=== PATIENT | female | born 1945 | race Caucasian/White ===

== ENCOUNTER 2019-03-05 16:24 | Inpatient (IN) ==
--- OUTSIDE RECORDS SUMMARY | 2019-03-05 16:27 | External Medical Summary | Continuity of Care Document ---
:1945 Author Name Luanne Smith, Provider Address Unavailable Unavailable , Care Team Providers Name Role Phone Unavailable Unavailable Unavailable Marlon Lofton M.D. Unavailable [email or web address] Hina LOFTON M.D. Unavailable Unavailable Unavailable Unavailable Unavailable Assessments Assessed Problems:Encounter for preventive health examination Problems Asymptomatic Postmenopausal Status (V49.81) Allergic rhinitis (477.9) (J30.9) Vitamin D deficiency (268.9) (E55.9) Osteoporosis (733.00) (M81.0) Hyperlipidemia (272.4) (E78.5) Arthritis (716.90) (M19.90) Encounter for routine gynecological examination (V72.31) (Z0 1.419) Allergies and Adverse Reactions No Known Drug Allergies (Allergy) Medications Calcium + D TABS Sarah Refills: 0 Multiple Vitamin TABS; TAKE 1 TABLET DAILYSarah Rendon Start: 10-Jan-2013 Refills: 0 Vitamin D 50 MCG (2000 UT) Oral Capsule; TAKE 1 CAPSUL E Daily Sarah Lofton Start: 10-Feb-2015 Refills: 0 Procedures History of Complete Colonoscopy Status: Completed History of Tubal Ligation Status: Comple rodrigo History of Tonsillectomy Status: Complet ed History of Oral Surgery Tooth Extraction Status: Completed History of Dilation And Curettage Status : Completed History of Exploratory Laparotomy Status : Completed History of Tonsillectomy With Adenoidectomy Status: Completed History of Tubal Ligation Status: Comple rodrigo Immunizations Tetanus-Diphtheria Toxoids Td 2-2 LF/0.5ML Intramuscul ar Suspension On: 30-Jan-2007 0:00 Zostavax 31770 UNT/0.65ML Subcutaneous Solution Reconstitute d On: 17-Aug-2011 Pneumococcal polysaccharide vaccine, 23 valent On: 3 14:20 Lot #: [id number], [employer] Influenza On: 18-Feb-2013 16:19 Lot #: [id number], [employer] Fluzone High-Dose Intramuscular Suspension On: 10-Feb-2015 14 :27 Lot #: [id number], [employer] Prevnar 13 Intramuscular Suspension On: 10-Feb-2015 14:28 Lot #: [id number], [place] Fluzone High-Dose 0.5 ML Intramuscular Suspension Pref illed Syringe On: 12-Feb-2018 Family History Unknown Family Member Family history of Osteoporosis (V17.81) Status: Active Comments: Family History Mother Family history of Uterine Cancer (V16.49) Status: Active Family history of FH Unobtainable - Patient Adopted Status: Active Social History - Smoking Status Unknown if ever smoked Plan of Treatment Planned Observations Planned Goals not documented Results No Known Results Results not documented Encounters Appointment; Hilary Koch M.D. 01-Mar-2018 13:00 Encounter Diagnosis: Problem not documented
[2019-03-05] MEDS ORDERED: NiCARDipine HCL INJ 2.5 MG/ML 10 ML AMP ONE (16:42)
[2019-03-05] MEDS ORDERED: HEPARIN (PORCINE) 1000 UNIT/ML 10 ML (CATH LAB USE ONLY) ONE ×2 (16:42→18:14)
[2019-03-05] MEDS ORDERED: NITROGLYCERIN SL 0.4 MG/TAB TAB SL PRN (16:42)
[2019-03-05] MEDS ORDERED: NITROGLYCERIN/D5W 100MCG/ML 20ML SYR ONE ×2 (16:43→17:06)
[2019-03-05] MEDS ORDERED: fentaNYL citrate 100 MCG/2 ML VIAL ONE (16:43)
[2019-03-05] MEDS ORDERED: MIDAZOLAM HCL 1 MG/ML 2ML VIAL ONE (16:43)
[2019-03-05 16:54] LABS: Basophils # (auto) 0.03 K/uL (0-0.2); Basophils % (auto) 0.3 %; Eosinophils # (auto) 0.02 K/uL (0-0.5); Eosinophils % (auto) 0.2 %; Hematocrit (blood only) 43.1 % (37-47); Hemoglobin 14.3 g/dL (12.0-16.0); Immature Granulocytes # (auto) 0.03 K/uL (0.00-0.02); Immature Granulocytes % (auto) 0.3 %; Lymphocytes # (auto) 1.79 K/uL (1.2-3.4); Lymphocytes % (auto) 17.2 %; Mean Corpuscular Hemoglobin 30.2 pg (25-34); Mean Corpuscular Hgb Conc 33.2 g/dL (32-36); Mean Corpuscular Volume 91.1 fL (80-100); Mean Platelet Volume 10.4 fL (7.4-10.4); Monocytes # (auto) 0.51 K/uL (0.11-0.59); Monocytes % (auto) 4.9 %; Neutrophils # (auto) 8.01 K/uL (1.4-6.5); Neutrophils % (auto) 77.1 %; Platelet Count 222 K/uL (130-400); RDW Coefficient of Variation 13.3 % (11.5-14.5); RDW Standard Deviation 44.4 fL (36.4-46.3); Red Blood Count 4.73 M/uL (4.2-5.4); White Blood Count 10.39 K/uL (4.8-10.8)
--- NOTE | 2019-03-05 17:02 | Pre Anesthesia Assessment ---
Date of Service March 05, 2019 Pre Sedation Assessment Vital Signs Temp Pulse Resp BP Pulse Ox 03/05/19 16:57 108 H 18 175/107 H 100 03/05/19 16:51 107 H 18 176/111 H 96 03/05/19 16:49 108 H 20 192/110 H 96 03/05/19 16:41 107 H 16 197/127 H 95 03/05/19 16:30 98.2 F Cardiovascular RRR, no murmur, no edema Respiratory normal respiratory effort, lungs clear to auscultation Pre-Sedation Airway Assessment Smoking Status: Never smoker Hx Sleep Apnea: No Hx Difficult Intubation: No Thyromental Distance: > or= 3.5 Finger Breadths Oral Cavity: + WNL Mallampati Class: III ASA: ASA4 Procedure Planning Contraindications for Sedation: none Current Medications Reviewed: Yes Notes The planned sedation has been discussed with the patient. Informed Consent was obtained. I have identified the patient, determined the appropriateness of sheela tion and have assessed the patient immediately prior to the procedure. All medicine(s) and interventions are by my order.
--- NOTE | 2019-03-05 17:06 | Cardiology Consultation ---
Date of Consultation March 05, 2019 Assessment & Plan (1) ST elevation (STEMI) myocardial infarction: Presentation consistent with acute OH and recommend proceeding with emergent cardiac catheterization and likely primary PCI. No apparent contraindications to procedure. Discussed risks, benefits, alternatives of procedure with patient and they are willing to proceed. Further recommendations pending findings of coronary angiography. History of Present Illness History of Present Illness 73-year-old woman here with acute chest pain and ECG concerning for acute OH. Patient seen emergently in the ED after heart alert activated upon arrival. No significant past cardiac history. Questionable hypertension in the past but otherwise no significant ASCVD risk factors. Other medical issues include GERD but not on any medications. Chest pain began approximately 11 AM, 5+ hours before arrival while at rest. Describes substernal pain radiating to her left arm. Pain severe for approximately 20 minutes. Following that had stuttering chest pressure. Reports one similar episode 3 weeks ago with exertion and maybe one similar episode while walking 6 months ago. EKG on arrival here showed sinus tachyca rdia with subtle ST elevations in 1, aVL and V2, occasional PVC inferior ST depressions. Received ASA en route and 1 sublingual nitroglycerin in ED. Allergies Allergy/AdvReac Type Severity Reaction Status Date / Time No Known Allergies Allergy Mild Unverified 07/31/07 08:58 Home Medications Home Medications Medication Instructions Recorded Confirmed Type Hydrochlorothiazide (Hctz *) 12.5 mg PO DAILY #15 07/31/07 Rx NONE #0 07/31/07 History Promethazine (Phenergan) 25 mg PO Q6HR PRN #15 07/31/07 Rx Patient History Medical History No significant past medical history (Acute) Social History Feels Safe at Home: Yes Smoking Status: Never smoker Review of Systems Review of Systems: Not obtained in the setting of emergency weight Physical Exam Physical Exam: General: Uncomfortable but no acute distress HEENT: Sclerae anicteric Lungs: Clear to auscultation bilaterally Cardiac: Tachycardic, regular, no murmurs Abdomen: Soft, nontender, nondistended, positive bowel sounds. Extremities: Warm, well perfused, no edema. 2+ radial pulses Skin: No rashes or lesions. Neuro: Nonfocal Psych: Alert orient x3, normal affect and mood Results & Data Vital Signs (Past 12 Hours) Vital Signs Temp Pulse Resp BP Pulse Ox 03/05/19 16:57 108 H 18 175/107 H 100 03/05/19 16:51 107 H 18 176/111 H 96 03/05/19 16:49 108 H 20 192/110 H 96 03/05/19 16:41 107 H 16 197/127 H 95 03/05/19 16:30 98.2 F PG Care Time/CCT Total # of Minutes Spent Total Time Spent with Patient: Total time spent is greater than 50% in coordination of care (as documented) at patient's floor/unit and/or counseling patient: (1) ST elevation (STEMI) myocardial infarction Involved coronary artery: unspecified coronary artery Qualified Code(s): I21.3 - ST elevation (STEMI) myocardial infarction of unspecified site
[2019-03-05 17:11] LABS: BUN Creatinine Ratio 13.9 (10-20); Calcium 9.3 mg/dl (8.5-10.1); Creatinine Clr Calc Pharmacy 56.8 ml/min; Est GFR (African American) 80.5; Est GFR (Non-African American) 69.4; Magnesium 1.9 mg/dl (1.8-2.4); Potassium 3.9 mmol/L (3.5-5.1)
[2019-03-05 17:17] LABS: Partial Thromboplastin Ratio 0.9; Partial Thromboplastin Time 24.5 Seconds (21.0-31.0); Prothrombin Time 10.1 Seconds (9.0-12.0)
[2019-03-05 17:19] LABS: Bilirubin,Total 0.4 mg/dl (0.2-1); Creatine Kinase MB 22.7 ng/ml (0.5-3.6); Troponin I 3.67 ng/ml (0-0.045)
[2019-03-05] MEDS ORDERED: ONDANSETRON INJ 2 MG/ML 2 ML VIAL ONE (17:40)
[2019-03-05] MEDS ORDERED: PRASugrel TAB 10 MG TAB PO ONE (19:05)
[2019-03-05] MEDS ORDERED: ACETAMINOPHEN 325 MG TAB PO PRN (19:32)
[2019-03-05] MEDS ORDERED: ONDANSETRON INJ 2 MG/ML 2 ML VIAL IV PRN (19:32)
--- NOTE | 2019-03-05 19:32 | Post Anesthesia Assessment ---
Date of Service March 05, 2019 Post Sedation Assessment Vital Signs Temp Pulse Resp BP Pulse Ox 03/05/19 16:57 108 H 18 175/107 H 100 03/05/19 16:51 107 H 18 176/111 H 96 03/05/19 16:49 108 H 20 192/110 H 96 03/05/19 16:41 107 H 16 197/127 H 95 03/05/19 16:30 98.2 F Recovery Score Activity: Moves 4 extremities Respiration: Deep Breath/Cough Circulation: +/-20% PreAnes Value Consciousness: Fully Awake Oxygen Saturation: O2 needed for >90% Discharge Sedation Level of Care: Fast Track Phase II Post Sedation Plan On clinical assessment, the patient appears to have tolerated the sedation without complications. Patient is recovering as anticipated. Patient will continue to be monitored by nursing and may be discharged when sedation discharge criteria are met per below protocol. Upon Completions of procedure and additional 15 minutes continue every 5 minute vital signs and the P.A.R. score; then discharge to a Phase I or Fast Track to Phase II per the following guidelines: * Discharge Patient to appropriate Phase II area if PAR is 8 or greater or return to pre- procedure baseline. The post - procedure orders will be as directed. * If PAR score is less than 8 or not return to pre-procedure baseline then patient will follow Phase I monitoring till PAR is reached for Phase II. The Phase I may be done in procedure room or may call to secure a Phase I area. * If naloxone or flumazenil are used for reversal, hold in Phase I for continued monitoring from when last reversal dose was given for a minimum of 60 minutes or longer pending the nurse and/or physician discretion of patient condition before discharge to Phase II. Please call the Sedation Physician to re-evaluate and complete post-note for discharge to Phase II area. Do NOT discharge from procedure sedation or Phase 1 until post- sedation evaluation note is complete by procedure /sedation MD Sedation Discharge Instructions to be given to the patient at discharge to home.
[2019-03-05] MEDS ORDERED: ICU PROTOCOL FOR HYPERGLYCEMIA PRN (19:38)
[2019-03-05] MEDS ORDERED: SODIUM CHLORIDE 0.9% 1000ML 1,000 ML IV SCH (19:45)
--- NOTE | 2019-03-05 19:46 | Cardiac Catheterization ---
ACC Data: Mechanic Welder Cardiac Status Clinical evaluation leading to the procedure CAD Presenation: STEMI Anginal Classification: CCS IV Heart Failure: No Cardiogenic Shock within 24 Hours: No Cardiac Arrest within 24 Hours: No Imaging Studies Past 6 Months: No Stress Studies Past 6 Months: No Diagnostic Physicians Name: Kenneth Rios MD Status: Emergency Closure Device Percutaneous Entry Location: Radial Closure Device: Radial Band Recommendations: PCI without planned CABG PCI Indication: Immediate PCI for STEMI First Noted: First EKG Lesion Segment Name: First diagonal Culprit Artery: Yes Stenosis Prior to Rx (%): 100 Chronic Total Occlusion: No IVUS: No FFR: No Pre-Procedure MEJIA Flow: 0 Previously Treated Lesion: No Lesion Complexity: High/C Lesion Length (mm): 10 Thrombus Present: Yes Bifurcation Lesion: Yes Guidewire Across Lesion: Stenosis Post-Procedure (%): 0 Post-Procedure MEJIA Flow: 3 Devices(s) Deployed: Yes Yes Lesion #2 Segment Name: mid LAD Culprit Artery: No Stenosis Prior to Rx (%): 60 Chronic Total Occlusion: No IVUS: Yes FFR: No Pre-Procedure MEJIA Flow: 3 Previously Treated Lesion: No Lesion Complexity: High/C Lesion Length (mm): 25 Thrombus Present: No Bifurcation Lesion: Yes Guidewire Across Lesion: Yes Stenosis Post-Procedure (%): 0 Post-Procedure MEJIA Flow: 3 Devices(s) Deployed: Yes Intraprocedure Events Significant Disection: No Perforation: No Cardiac Cath Procedure Full Procedure Date March 05, 2019 Pre-Procedure Diagnosis Pre-Procedure Diagnosis: STEMI AUC Score AUC Score: 9 Post-Procedure Diagnosis Post-Procedure Diagnosis: Severe CAD and Successful PCI Procedure(s) Performed Procedure(s) Performed: Coronary Angiography, Left Heart Cath, Drug Eluting Stent and IVUS It Project Lead Kenneth Rios MD Lab Rn(s) Salvatore Estimated Blood Loss Estimated Blood Loss: 10 Medication(s) Medication(s): Fentanyl, Heparin, Lidocaine 1%, Nicardipine, Nitroglycerin and Versed Medication(s): Prasugrel Summary of Findings Indication: STEMI/Heart Alert Access: 6 Fr right radial artery Catheters: JR4, EBU 3.5 guide Findings: LM -moderate caliber vessel, luminal irregularities LAD -moderate caliber vessel, diffuse proximal 50% disease, 60% mid segment disease just after takeoff of first diagonal. Large first diagonal 100% acutely occluded with faint left to left collaterals. Circumflex -moderate caliber, 20% proximal disease. Moderate caliber OM 2 without significant disease. RCA -dominant, large caliber, 40 to 50% earlymid, 20 to 30% distal, luminal irregularities in PDA. LVEDP -19 -- PCI -- Antithrombotic therapy: Heparin, Prasugrel Procedure: Left main cannulated with EBU 3.5 guide Customer Service And Sales Consultant 50 wire passed across lesion into distal first diagonal Proximal diagonal lesion predilated with 2.0 compliant balloon Dilated diagonal lesion stented with 2.5 x 15 mm Xience Jeanne stent extending back to ostium With stenting there was worsening of mid LAD stenosis LAD rewired with whisper wire Diagonal stent postdilated with 2.5 balloon Eventually able to deliver 1.25 balloon across mid LAD stenosis. Mid LAD dilated with 1.25, 2.0 and 2.5 balloons Post angioplasty dissection noted in mid LAD Drug-eluting stent placed from lateproximal across takeoff of diagonal into mid LAD (2.5 by 28 mm Xience Jeanne). Stent post-dilated with stent balloon IC vasodilators administered for spasm Post procedure MEJIA 3 flow, stents well expanded with minimal residual stenosis and no apparent cardiac complications. Arterial Closure: TR band Summary: 1. 100% acute occlusion of large first diagonal 2. Diffuse, moderate to severe, proximal to mid LAD disease 3. 40-50% earlymid RCA stenosis 4. Borderline intracardiac filling pressure 5. Successful PCI of LAD, first diagonal bifurcation with 2 drug-eluting stents (T formation, LAD2.5 x 28, diagonal2.5 x 15 Xience Jeanne). Recommendations: Admit to ICU for continued monitoring Loaded with Prasugrel 60 mg in cathead operator Continue dual-antiplatelet therapy for at least 1 year. Trend troponins until peak, Check Echo Uptitrate beta-shital/CHRISTI as BP allows High-dose statin Consult cardiac Rehab Patient with at least moderate residual proximal LAD disease. Consider additional ischemic evaluation as an outpatient. Hemodynamics Rest Ao:: 153/86/116 Final Ao: 151/81/111 LV: 159/19 Recommendations Recommendations: PCI without planned CABG Specimens Specimens: None Radiation Exposure (mGy) 3286 Contrast (mls) 205 Fluids (cc crystalloids) Fluids (cc crystalloids): 201 Drains Drains: None Anesthesia Moderate Procedural Complication(s) None Disposition ICU I attest to the content of the Intraoperative Record and any orders documented therein. Any exceptions are noted below.
--- NOTE | 2019-03-05 20:08 | Critical Care Consultation ---
Date of Consultation March 05, 2019 Assessment & Plan (1) Admitted to intensive care unit: Reason critically ill: 73yo female with STEMI s/p cardiac cath 03/05 with stentx2 placement in LAD, diagonal. NEURO -CAM ICU-NEGATIVE -PRN Tylenol for pain CARDIOVASCULAR -Pt presented with chest pain, pressure. Only known Hx of HTN -EKG 03/[address] elevations in anterolateral leads -trops, CK-MB elevated -Pt is post cardiac cath 03/05 with stent x2 placement in LAD, diagonal -Received Prasugrel 60mg during catheterization -will continue dual antiplatelet therapy, high intensity statin -will give CHRISTI and betablocker while monitoring BP -continue to trend trops -followup on Echo -followup on ordered lipid panel, hgA1c PULMONARY -pt with crackles on exam -new requirement of oxygen supplementation, currently 2L NC -can consider d/c fluids given crackles heard on exam -will continue to monitor RENAL/LYTES -Cr within normal limits -replace electrolytes as needed -continue to monitor with AM BMP -no concerns currently ENDOCRINE -HgBA1c pending -ICU protocol for hyperglycemia HEME -no concerns currently ID -no concerns currently PIVs DVT Proph: SCDs CODE STATUS: Full Dispo: ICU for monitoring Supervising Physician Co-Signing Physician Notes Dr Roman was the resident-physician during care of patient. I separately evaluated patient for hickey portions of the history and the exam. I was present during the critical portion of medical decision making, and I discussed the case with the resident. I generally agree with the findings and plan except for any additions/exceptions noted. Patient seen and examined at bedside. Patient was admitted with heart code. Patient has stent placed in LAD and diagonal. Complains of mild chest tightness. Denies any chest pain, no nausea or vomiting. No dizziness. Patient has history of gastritis. We will start her on Protonix. Continue with dual antiplatelet therapy. Will start DVT prophylaxis starting tomorrow. Right arm has venous congestion likely because of the arterial lock on the right radial artery. Patient is able to move the right fingers. Patient is saturating well. I have personally spent 35 minutes of critical care time in the direct management of this patient. This is a life/limb threatening event. This includes time spent evaluating patient, direct bedside care, chart review, placing orders, interpretation of diagnostic studies, discussion with consultants, patient, and/or family members regarding treatment decisions, as well as other required patient management activities. This time is exclusive of all separately billable procedures, and teaching time and separate from and in addition to any other critical care service time. History of Present Illness Attending Physician: Kenneth Rios MD History of Present Illness Pt is a 73yo female with STEMI s/p cardiac cath 03/05 with stentx2 placement in LAD, diagonal. States she was driving this AM when she noticed the chest pain, radiating down her arm. Presented to the ED where a heart alert was called and she was sent to cardiac cath. Currently states she has mild chest pressure post-op. Denies associated SOB or palpitations. Also denies EPPERSON, blurry vision, N/V or dizziness. Allergies Allergy/AdvReac Type Severity Reaction Status Date / Time No Known Allergies Allergy Mild Unverified 07/31/07 08:58 Patient History Medical History No significant past medical history (Acute) Social History Feels Safe at Home: Yes Smoking Status: Never smoker Review of Systems Review of Systems: All systems reviewed & are unremarkable except as noted in HPI & below Physical Exam Physical Exam: General: Alert, oriented. Looks fatigued laying in bed. Skin: No noted rashes or bruises Psych: Appropriate mood and affect Neuro: No gross deficits HEENT: NC/AT Chest: Nontender to palpation. CV: RRR, Normal s1, s2. No murmurs appreciated Resp: Breath sounds with some crackles, no increased effort of breathing. Abdomen: Soft, nontender, nondistended. No guarding. Extremities: No edema in lower extremities bilaterally. Results & Data Vital Signs (Past 12 Hours) Vital Signs Temp Pulse Resp BP Pulse Ox 03/05/19 19:45 91 H 12 159/99 H 93 03/05/19 19:20 36.8 C 90 16 140/82 92 03/05/19 16:57 108 H 18 175/107 H 100 03/05/19 16:51 107 H 18 176/111 H 96 03/05/19 16:49 108 H 20 192/110 H 96 03/05/19 16:41 107 H 16 197/127 H 95 03/05/19 16:30 36.8 C Coding Level of Care Code Critical Care 1st 30-74 mins Diagnoses Admitted to intensive care unit Z78.9 Resident Activity Tracking Resident Involvement: Resident Care Provided Care Provided: Adult Hospital Medicine
[2019-03-05] MEDS: METOPROLOL TARTRATE 25 MG TAB PO SCH (20:48)
--- NOTE | 2019-03-05 22:27 | Emergency Department Note ---
Entered by Lilli De Jesus acting as a scribe for Luis Avila M.D. History of Present Illness General Chief complaint: Chest Pain Stated complaint: CHEST PAIN, RADIATING TO LEFT SHOULDER Time Seen by Provider: 03/05/19 16:36 Source: patient History of Present Illness Provider complaint: chest pain Onset (ago): hour(s) 5 Location: chest and left Radiation: extremity (left) Quality: + other (pressure) Associated symptoms: + other (-neck pain,- back pain, -abdominal pain) Treatments prior to arrival: aspirin The patient is a 73 year old female who presents to the Emergency Room with complaints of chest pain that started at 1130 today. The patient reports she was running errands when she developed chest pain that radiates to her left side. S he states that it radiated slightly to her left arm. She mentions that when she laid down the pain slightly resolved. She states that it feels like a pressure currently. She denies any neck pain, jaw pain, or abdominal pain. The patient denies any history of hypertension or diabetes. She denies any cardiac history. She states that she is a non-smoker. The patient mentions that she took Aspirin prior to arrival. Home Medications Home Medications Medication Instructions Recorded Confirmed Type Hydrochlorothiazide (Hctz *) 12.5 mg PO DAILY #15 07/31/07 Rx NONE #0 07/31/07 History Promethazine (Phenergan) 25 mg PO Q6HR PRN #15 07/31/07 Rx Allergies Allergy/AdvReac Type Severity Reaction Status Date / Time No Known Allergies Allergy Mild Unverified 07/31/07 08:58 Past Med/Surg History Medical History No significant past medical history (Acute) Social History Feels Safe at Home: Yes Smoking Status: Never smoker Review of Systems See HPI for pertinent positives & negatives. and A total of 10 systems reviewed and were otherwise negative Physical Exam Vital Signs Vital Signs - 24 hr 03/05/19 16:30 03/05/19 16:41 03/05/19 16:49 Temperature 36.8 C Temperature Source Oral Sepsis Recent Fever Within 48 Hours No Sepsis New/Unexplained Change in Mental Status No Sepsis Action Taken by Nursing No Action Required Pulse Rate [Finger] 107 H 108 H Pulse Rhythm [Finger] Pulse Strength [Finger] Respiratory Rate 16 20 Respiratory Effort / Characteristics Non-Labored Non-Labored Respiratory Depth Normal Normal Respiratory Pattern Blood Pressure [Left Arm] 197/127 H 192/110 H Blood Pressure Mean [Left Arm] 150 137 Blood Pressure Position [Left Arm] Pulse Oximetry 95 96 Oxygen Delivery Method Room Air Room Air Oxygen Flow Rate 03/05/19 16:51 03/05/19 16:57 03/05/19 19:20 Temperature 36.8 C Temperature Source Oral Sepsis Recent Fever Within 48 Hours Sepsis New/Unexplained Change in Mental Status Sepsis Action Taken by Nursing Pulse Rate [Finger] 107 H 108 H 90 Pulse Rhythm [Finger] Regular Pulse Strength [Finger] Normal Respiratory Rate 18 18 16 Respiratory Effort / Characteristics Non-Labored Non-Labored Non-Labored Spontaneous Respiratory Depth Normal Normal Normal Respiratory Pattern Regular Blood Pressure [Left Arm] 176/111 H 175/107 H 140/82 Blood Pressure Mean [Left Arm] 132 129 101 Blood Pressure Position [Left Arm] Lying Pulse Oximetry 96 100 92 Oxygen Delivery Method Room Air Nasal Cannula Oxygen Flow Rate 2 GENERAL: Awake, alert, fatigued appearing in no distress HENT: Normocephalic, atraumatic. EYES: Normal conjunctiva. Sclera non-icteric. RESPIRATORY: Clear to auscultation. No wheezes. Normal respiratory effort. CARDIAC: Tachycardic rate. Normal rhythm. Extremities warm and well perfused. GI: Soft, non-distended. No tenderness to palpation. MUSCULOSKELETAL: Atraumatic. Chest examination reveals no tenderness. LOWER EXTREMITIES: Calves are equal size bilaterally and non-tender. No edema NEURO: Normal sensorium. No sensory or motor deficits noted. No facial droop. SKIN: Warm and dry. No rash or jaundice noted. Course 1637: The patient was evaluated in room B1, and a complete history and physical examination were performed. 1645: I reviewed the patient's case with Dr. Rios- [facility] Cardiology. He will evaluate the patient for further management. Administered Medications Sodium Chloride (Nss 1000ml) 1,000 mls @ 100 mls/hr IV .Q10H SINAN Stop: 03/06/19 00:44 Last Admin: 03/05/19 20:48 Dose: 100 mls/hr Documented by: [id number] Metoprolol Tartrate (Lopressor) 25 mg PO BID SINAN Stop: 04/04/19 20:59 Last Admin: 03/05/19 20:48 Dose: 25 mg Documented by: [id number] Discontinued Medications Fentanyl Citrate (Fentanyl Citrate) Confirm Administered Dose 100 mcg .ROUTE .STK-MED ONE Stop: 03/05/19 16:44 Last Increment: 03/05/19 19:13 Dose: 50 mcg Documented by: [id number] Heparin Sodium (Porcine) (Heparin Iv Bolus (Designer/Writer Use Only)) Confirm Administered Dose 10,000 units .ROUTE .STK-MED ONE Stop: 03/05/19 16:43 Last Admin: 03/05/19 19:12 Dose: 10,000 units Documented by: [id number] Heparin Sodium (Porcine) (Heparin Iv Bolus (Designer/Writer Use Only)) Confirm Administered Dose 10,000 units .ROUTE .STK-MED ONE Stop: 03/05/19 18:15 Last Admin: 03/05/19 19:13 Dose: 2,000 units Documented by: [id number] Heparin Sodium/Sodium Chloride (Heparin/Nss 1000 Unit/500ml Flush Bag) Confirm Administered Dose 3,000 units IV .STK-MED ONE Stop: 03/05/19 16:44 Last Admin: 03/05/19 20:43 Dose: Not Given Documented by: [id number] Midazolam HCl (Versed) Confirm Administered Dose 2 mg .ROUTE .STK-MED ONE Stop: 03/05/19 16:44 Last Admin: 03/05/19 19:13 Dose: 2 mg Documented by: [id number] Nicardipine HCl (Cardene) Confirm Administered Dose 25 mg .ROUTE .STK-MED ONE Stop: 03/05/19 16:43 Last Admin: 03/05/19 20:43 Dose: Not Given Documented by: [id number] Nitroglycerin/Dextrose (Nitroglycerin/D5w 100 Mcg/Ml 20ml Syringe) Confirm Administered Dose 2,000 mcg .ROUTE .STK-MED ONE Stop: 03/05/19 16:44 Last Admin: 03/05/19 20:43 Dose: Not Given Documented by: [id number] Nitroglycerin/Dextrose (Nitroglycerin/D5w 100 Mcg/Ml 20ml Syringe) Confirm Administered Dose 2,000 mcg .ROUTE .STK-MED ONE Stop: 03/05/19 17:07 Last Admin: 03/05/19 20:44 Dose: Not Given Documented by: [id number] Ondansetron HCl (Zofran) Confirm Administered Dose 4 mg .ROUTE .STK-MED ONE Stop: 03/05/19 17:41 Last Admin: 03/05/19 19:13 Dose: 4 mg Documented by: [id number] Prasugrel (Effient) Confirm Administered Dose 60 mg PO .STK-MED ONE Stop: 03/05/19 19:06 Last Admin: 03/05/19 19:13 Dose: 60 mg Documented by: [id number] Medical Decision Making Differential Diagnosis Differential diagnosis: Etiologies such as cardiac ischemia, aortic dissection, pulmonary embolism, pneumonia, pneumothorax, musculoskeletal, infections, pericarditis, myocarditis, esophageal rupture, gastrointestinal, as well as others were entertained. Medical Records Attestation: I reviewed the patient's medical records. Home Medications Current Medication List: was personally reviewed by me Laboratory Data Attestation: I reviewed the patient's lab results. Result diagrams: 03/05/19 16:44 03/05/19 16:44 Lab Results 03/05/19 03/05/19 03/05/19 Range/Units 16:44 16:44 16:44 WBC 10.39 (4.8-10.8) K/uL RBC 4.73 (4.2-5.4) M/uL Hgb 14.3 (12.0-16.0) g/dL Hct 43.1 (37-47) % MCV 91.1 (80-100) fL MCH 30.2 (25-34) pg MCHC 33.2 (32-36) g/dL RDW Std Deviation 44.4 (36.4-46.3) fL RDW Coeff of Migel 13.3 (11.5-14.5) % Plt Count 222 (130-400) K/uL MPV 10.4 (7.4-10.4) fL Immature Gran % (Auto) 0.3 % Neut % (Auto) 77.1 % Lymph % (Auto) 17.2 % Calloway % (Auto) 4.9 % Eos % (Auto) 0.2 % Baso % (Auto) 0.3 % Immature Gran # (Auto) 0.03 H (0.00-0.02) K/uL Neut # (Auto) 8.01 H (1.4-6.5) K/uL Lymph # (Auto) 1.79 (1.2-3.4) K/uL Calloway # (Auto) 0.51 (0.11-0.59) K/uL Eos # (Auto) 0.02 (0-0.5) K/uL Baso # (Auto) 0.03 (0-0.2) K/uL PT 10.1 (9.0-12.0) Seconds INR 1.0 (0.9-1.1) APTT 24.5 (21.0-31.0) Seconds PTT Ratio 0.9 Sodium 137 (136-145) mmol/L Potassium 3.9 (3.5-5.1) mmol/L Chloride 103 (98-107) mmol/L Carbon Dioxide 27 (21-32) mmol/L Anion Gap 7.0 (3-11) BUN 12 (7-18) mg/dl Creatinine 0.84 (0.6-1.2) mg/dl Est Cr Clr Drug Dosing 56.8 ml/min Est GFR ( Amer) 80.5 Est GFR (Non-Af Amer) 69.4 BUN/Creatinine Ratio 13.9 (10-20) Glucose 116 H (70-99) mg/dl Calcium 9.3 (8.5-10.1) mg/dl Magnesium 1.9 (1.8-2.4) mg/dl Total Bilirubin 0.4 (0.2-1) mg/dl AST 27 (15-37) U/L ALT 22 (12-78) U/L Alkaline Phosphatase 79 (45-117) U/L Total Creatine Kinase 197 H (26-192) U/L CK-MB (CK-2) 22.7 H (0.5-3.6) ng/ml CK/CKMB % Calc 11.5 H (0-3.0) POC Troponin I (0-0.045) ng/ml Troponin I 3.670 H* (0-0.045) ng/ml Total Protein 8.0 (6.4-8.2) gm/dl Albumin 4.0 (3.4-5.0) gm/dl Globulin 4.0 (2.5-4.0) gm/dl Albumin/Globulin Ratio 1.0 (0.9-2) Lipase 85 (73-393) U/L 03/05/19 Range/Units 16:48 WBC (4.8-10.8) K/uL RBC (4.2-5.4) M/uL Hgb (12.0-16.0) g/dL Hct (37-47) % MCV (80-100) fL MCH (25-34) pg MCHC (32-36) g/dL RDW Std Deviation (36.4-46.3) fL RDW Coeff of Migel (11.5-14.5) % Plt Count (130-400) K/uL MPV (7.4-10.4) fL Immature Gran % (Auto) % Neut % (Auto) % Lymph % (Auto) % Calloway % (Auto) % Eos % (Auto) % Baso % (Auto) % Immature Gran # (Auto) (0.00-0.02) K/uL Neut # (Auto) (1.4-6.5) K/uL Lymph # (Auto) (1.2-3.4) K/uL Calloway # (Auto) (0.11-0.59) K/uL Eos # (Auto) (0-0.5) K/uL Baso # (Auto) (0-0.2) K/uL PT (9.0-12.0) Seconds INR (0.9-1.1) APTT (21.0-31.0) Seconds PTT Ratio Sodium (136-145) mmol/L Potassium (3.5-5.1) mmol/L Chloride (98-107) mmol/L Carbon Dioxide (21-32) mmol/L Anion Gap (3-11) BUN (7-18) mg/dl Creatinine (0.6-1.2) mg/dl Est Cr Clr Drug Dosing ml/min Est GFR ( Amer) Est GFR (Non-Af Amer) BUN/Creatinine Ratio (10-20) Glucose (70-99) mg/dl Calcium (8.5-10.1) mg/dl Magnesium (1.8-2.4) mg/dl Total Bilirubin (0.2-1) mg/dl AST (15-37) U/L ALT (12-78) U/L Alkaline Phosphatase (45-117) U/L Total Creatine Kinase (26-192) U/L CK-MB (CK-2) (0.5-3.6) ng/ml CK/CKMB % Calc (0-3.0) POC Troponin I 2.84 H (0-0.045) ng/ml Troponin I (0-0.045) ng/ml Total Protein (6.4-8.2) gm/dl Albumin (3.4-5.0) gm/dl Globulin (2.5-4.0) gm/dl Albumin/Globulin Ratio (0.9-2) Lipase (73-393) U/L ECG Data Attestation: I personally reviewed and interpreted this ECG as follows: Indication: chest pain Rate (beats per minute): 103 Rhythm: sinus tachycardia ECG [place]: Normal ECG ST segments: ST depression ECG Findings: PVCs and Other (normal interval) Blood Pressure Blood Pressure Findings: Elevated blood pressure Blood Pressure Disposition: further management by hospitalist VALENTE Goldsmith Patient is a 73-year-old female otherwise healthy presenting here today complaining of onset around 11 AM when she was driving of some central chest pain rating to her left shoulder. Pain was maximal for about 20 minutes and improved when she laid down at home. Pressure has persisted. No shortness of breath or nausea. No trauma reported. States over the past month or 2 she has had some episodes when walking a little bit of similar pressure but no severe pain like this before. Took aspirin full dose prior to arrival. No history of cardiac disease, diabetes, or tobacco usage. Triage EKG concerning for ST segment elevation [place] anteriorly. Heart alert was called. Given nitroglycerin with resolution of her pressure symptoms. Patient is significantly hypertensive. Evaluated by Dr. Rios with cardiology who plans for cardiac catheterization. Patient was taken to the cardiac catheterization lab for further care. Impression & Plan ST elevation (STEMI) myocardial infarction Critical Care Time Critical Care Time: Yes Total Critical Care Time: 30 I have personally spent 30 minutes of critical care time in the direct management of this patient. This includes bedside care, interpretation of diagnostic studies, and testing, discussion with consultants, patient, and family members, and other required patient management activities. This 30 minutes is in excess of all separately billable procedures. Discharge Plan Visit Data *Final* Discharge Date/Time: 03/05/19 16:58 Chief Complaint: Chest Pain Stated Complaint: CHEST PAIN, RADIATING TO LEFT SHOULDER ED Provider: Luis Avila Discharge Problem: ST elevation (STEMI) myocardial infarction Patient Disposition: Still a Patient Discharge Instructions Interventions: ED Discharge Assessment Last Done: 03/05/19 16:58 Discharge Problem: ST elevation (STEMI) myocardial infarction Qualifiers: Involved coronary artery: unspecified coronary artery Qualified Code(s): I21.3 - ST elevation (STEMI) myocardial infarction of unspecified site The scribe's documentation has been prepared under my direction and personally reviewed by me in its entirety. I confirm that the note above accurately reflec ts all work, treatment, procedures, and medical decision making performed by me.
[2019-03-06 05:04] LABS: Basophils # (auto) 0.01 K/uL (0-0.2); Basophils % (auto) 0.1 %; Hematocrit (blood only) 35.9 % (37-47); Hemoglobin 12.3 g/dL (12.0-16.0); Immature Granulocytes # (auto) 0.02 K/uL (0.00-0.02); Immature Granulocytes % (auto) 0.2 %; Lymphocytes # (auto) 1.94 K/uL (1.2-3.4); Lymphocytes % (auto) 16.3 %; Mean Corpuscular Hgb Conc 34.3 g/dL (32-36); Mean Corpuscular Volume 87.6 fL (80-100); Monocytes # (auto) 0.52 K/uL (0.11-0.59); Monocytes % (auto) 4.4 %; Neutrophils # (auto) 9.42 K/uL (1.4-6.5); Platelet Count 211 K/uL (130-400); RDW Coefficient of Variation 13.2 % (11.5-14.5); RDW Standard Deviation 42.9 fL (36.4-46.3); White Blood Count 11.91 K/uL (4.8-10.8)
[2019-03-06 05:25] LABS: Chol HDL Ratio 4; Cholesterol 264 mg/dl (0-200); HDL Cholesterol 67 mg/dl; LDL Cholesterol Calculated 146 mg/dl; Triglycerides 256 mg/dl (0-150); VLDL Cholesterol 51 mg/dl
[2019-03-06 06:22] LABS: Estimated Average Glucose 117 mg/dl; Hemoglobin A1C 5.7 % (4.5-5.6)
--- NOTE | 2019-03-06 08:22 | Critical Care Progress Note ---
Date of Service March 06, 2019 Assessment & Plan (1) Admitted to intensive care unit: Reason critically ill: 73yo female with STEMI s/p cardiac cath 03/05 with stentx2 placement in LAD, diagonal. Post-procedure DAY 1. Stable for downgrade. NEURO -[facility] ICU-NEGATIVE -PRN Tylenol for pain CARDIOVASCULAR -Pt presented with chest pain, pressure. Only known Hx of HTN -EKG 03/[address] elevations in anterolateral leads -trops, CK-MB elevated on admission. -Pt is post cardiac cath 03/05 with stent x2 placement in LAD, diagonal -Received Prasugrel 60mg during catheterization -continue dual antiplatelet therapy, high intensity statin -continue CHRISTI and betablocker(uptitrated today) while monitoring BP -troponins are currently uptrending and peaking. Continue to trend -Echo pending -lipid panel with elevated triglycerides and total cholesterol- continue high intensity statin -hgA1c of 5.7. -close PCP/cardiology followup strongly recommended. PULMONARY -pt with resolution of need for oxygen supplementation -incentive spirometry ordered -will continue to monitor GI -currently on a heart healthy diet -PO protonix BID RENAL/LYTES -Cr within normal limits -replace electrolytes as needed -continue to monitor with AM BMP -no concerns currently ENDOCRINE -HgBA1c of 5.7 -ICU protocol for hyperglycemia HEME -Pt with hematoma on right hand -Hgb within normal limits with drop from 14.3 to 12.3 this AM -will continue to monitor. ID -no concerns currently PIVs DVT Proph: SCDs CODE STATUS: Full Dispo: Stable for downgrade to the floor Supervising Physician Co-Signing Physician Notes Dr Roman was the resident-physician during care of patient. I separately evaluated patient for hickey portions of the history and the exam. I was present during the critical portion of medical decision making, and I discussed the case with the resident. I generally agree with the findings and plan except for any additions/exceptions noted. Patient seen and examined at bedside. Feeling much better. Had one episode of nausea and vomiting last night. No nausea vomiting today. No shortness of breath, no chest pain, no headache, no nausea, no vomiting, no palpitation. Patient is feeling better than yesterday. The right arm is better than yesterday. But it has it is swollen and there is bluish induration likely secondary to hematoma. Patient has no neurological deficit no numbness or tightening sensation in the arm. Patient has good radial pulse. As the patient to keep the arm elevated and ice packs. Hematoma H has been marked and needs to be kept an eye on. Continue with beta-blockers, CHRISTI inhibitor, statin, aspirin, Prasugrel. PPI for her gastritis. Slight drop in hemoglobin could be secondary to the hematoma that she has in the arm. Recommend repeating H&H in the evening. Start DVT prophylaxis once hemoglobin is stable. Continue with compression boots still that time. Follow cardiology recommendations. I have personally spent 36 minutes of critical care time in the direct management of this patient. This is a life/limb threatening event. This includes time spent evaluating patient, direct bedside care, chart review, placing orders, interpretation of diagnostic studies, discussion with consultants, patient, and/or family members regarding treatment decisions, as well as other required patient management activities. This time is exclusive of all separately billable procedures, and teaching time and separate from and in addition to any other critical care service time. Subjective Pt seen this AM, sitting up in bed in good spirits. States she had an episode of emesis overnight. However, has been able to tolerate food this AM without nausea or vomitting. Main problem this AM is swelling of her right hand and forearm which she has been keeping elevated and iced. Currently denies dizziness, chest pain, SOB, palpitations, diarrhea or constipation. Review of Systems Review of Systems: All systems reviewed & are unremarkable except as noted in HPI & below Physical Exam Physical Exam: General: Alert, orientedx4. No acute distress, sitting up in bed. Skin: Right hand swollen with blue bruising, some petechiae. Neurovascularly intact, no numbness or tingling noted. Psych: Appropriate mood and affect Neuro: No gross deficits. Right hand neurovascularly intact, no numbness or tingling noted. HEENT: NC/AT Chest: Nontender to palpation. CV: RRR, Normal s1, s2. No murmurs appreciated Resp: Breath sounds clear bilaterally, no increased effort of breathing. No crackles noted. Abdomen: Soft, nontender, nondistended. No guarding. No organomegaly appreciated. Extremities: No edema in lower extremities bilaterally. MSK: able to move hands appropriately bilaterally. Results & Data Vital Signs (Past 12 Hours) Vital Signs Temp Pulse Resp BP Pulse Ox 03/06/19 06:00 78 17 123/64 94 03/06/19 05:00 75 15 119/61 94 03/06/19 04:00 36.8 C 80 16 113/66 94 03/06/19 03:00 80 14 123/71 95 03/06/19 02:00 79 14 119/76 94 03/06/19 01:00 75 16 117/71 95 03/06/19 00:05 36.7 C 90 14 140/82 92 03/06/19 00:00 36.6 C 80 17 123/72 97 03/05/19 23:00 81 16 126/77 03/05/19 22:30 83 15 134/81 95 03/05/19 22:00 89 14 119/81 96 03/05/19 21:30 90 15 128/77 94 03/05/19 21:00 89 14 154/90 H 93 03/05/19 20:30 87 16 155/90 H 97 Laboratory Results Laboratory Results - last 24 hr 03/05/19 03/05/19 03/05/19 16:44 16:44 16:44 WBC 10.39 RBC 4.73 Hgb 14.3 Hct 43.1 MCV 91.1 MCH 30.2 MCHC 33.2 RDW Std Deviation 44.4 RDW Coeff of Migel 13.3 Plt Count 222 MPV 10.4 Immature Gran % (Auto) 0.3 Neut % (Auto) 77.1 Lymph % (Auto) 17.2 [place] % (Auto) 4.9 Eos % (Auto) 0.2 Baso % (Auto) 0.3 Immature Gran # (Auto) 0.03 H Neut # (Auto) 8.01 H Lymph # (Auto) 1.79 [place] # (Auto) 0.51 Eos # (Auto) 0.02 Baso # (Auto) 0.03 PT 10.1 INR 1.0 APTT 24.5 PTT Ratio 0.9 Sodium 137 Potassium 3.9 Chloride 103 Carbon Dioxide 27 Anion Gap 7.0 BUN 12 Creatinine 0.84 Est Cr Clr Drug Dosing 56.8 Est GFR ( Amer) 80.5 Est GFR (Non-Af Amer) 69.4 BUN/Creatinine Ratio 13.9 Glucose 116 H POC Glucose Estimat Average Glucose Hemoglobin A1c Calcium 9.3 Magnesium 1.9 Total Bilirubin 0.4 AST 27 ALT 22 Alkaline Phosphatase 79 Total Creatine Kinase 197 H CK-MB (CK-2) 22.7 H CK/CKMB % Calc 11.5 H POC Troponin I Troponin I 3.670 H* Total Protein 8.0 Albumin 4.0 Globulin 4.0 Albumin/Globulin Ratio 1.0 Triglycerides Cholesterol LDL Cholesterol, Calc VLDL Cholesterol, Calc HDL Cholesterol Cholesterol/HDL Ratio Lipase 85 Nasal Screen MRSA (PCR) Hepatitis C Ab Screen 03/05/19 03/05/19 03/05/19 16:48 20:25 20:30 WBC RBC Hgb Hct MCV MCH MCHC RDW Std Deviation RDW Coeff of Migel Plt Count MPV Immature Gran % (Auto) Neut % (Auto) Lymph % (Auto) [place] % (Auto) Eos % (Auto) Baso % (Auto) Immature Gran # (Auto) Neut # (Auto) Lymph # (Auto) [place] # (Auto) Eos # (Auto) Baso # (Auto) PT INR APTT PTT Ratio Sodium Potassium Chloride Carbon Dioxide Anion Gap BUN Creatinine Est Cr Clr Drug Dosing Est GFR ( Amer) Est GFR (Non-Af Amer) BUN/Creatinine Ratio Glucose POC Glucose 147 H Estimat Average Glucose Hemoglobin A1c Calcium Magnesium Total Bilirubin AST ALT Alkaline Phosphatase Total Creatine Kinase CK-MB (CK-2) CK/CKMB % Calc POC Troponin I 2.84 H Troponin I Total Protein Albumin Globulin Albumin/Globulin Ratio Triglycerides Cholesterol LDL Cholesterol, Calc VLDL Cholesterol, Calc HDL Cholesterol Cholesterol/HDL Ratio Lipase Nasal Screen MRSA (PCR) Negative Hepatitis C Ab Screen 03/06/19 03/06/19 03/06/19 02:10 04:36 04:36 WBC 11.91 H RBC 4.10 L Hgb 12.3 Hct 35.9 L MCV 87.6 MCH 30.0 MCHC 34.3 RDW Std Deviation 42.9 RDW Coeff of Migel 13.2 Plt Count 211 MPV 10.0 Immature Gran % (Auto) 0.2 Neut % (Auto) 79.0 Lymph % (Auto) 16.3 [place] % (Auto) 4.4 Eos % (Auto) 0.0 Baso % (Auto) 0.1 Immature Gran # (Auto) 0.02 Neut # (Auto) 9.42 H Lymph # (Auto) 1.94 [place] # (Auto) 0.52 Eos # (Auto) 0.00 Baso # (Auto) 0.01 PT INR APTT PTT Ratio Sodium Potassium Chloride Carbon Dioxide Anion Gap BUN Creatinine Est Cr Clr Drug Dosing Est GFR ( Amer) Est GFR (Non-Af Amer) BUN/Creatinine Ratio Glucose POC Glucose Estimat Average Glucose 117 Hemoglobin A1c 5.7 H Calcium Magnesium Total Bilirubin AST ALT Alkaline Phosphatase Total Creatine Kinase CK-MB (CK-2) CK/CKMB % Calc POC Troponin I Troponin I 26.600 H* Total Protein Albumin Globulin Albumin/Globulin Ratio Triglycerides Cholesterol LDL Cholesterol, Calc VLDL Cholesterol, Calc HDL Cholesterol Cholesterol/HDL Ratio Lipase Nasal Screen MRSA (PCR) Hepatitis C Ab Screen 03/06/19 03/06/19 03/06/19 04:36 04:36 06:25 WBC RBC Hgb Hct MCV MCH MCHC RDW Std Deviation RDW Coeff of Migel Plt Count MPV Immature Gran % (Auto) Neut % (Auto) Lymph % (Auto) [place] % (Auto) Eos % (Auto) Baso % (Auto) Immature Gran # (Auto) Neut # (Auto) Lymph # (Auto) [place] # (Auto) Eos # (Auto) Baso # (Auto) PT INR APTT PTT Ratio Sodium Potassium Chloride Carbon Dioxide Anion Gap BUN Creatinine Est Cr Clr Drug Dosing Est GFR ( Amer) Est GFR (Non-Af Amer) BUN/Creatinine Ratio Glucose POC Glucose 124 H Estimat Average Glucose Hemoglobin A1c Calcium Magnesium Total Bilirubin AST ALT Alkaline Phosphatase Total Creatine Kinase CK-MB (CK-2) CK/CKMB % Calc POC Troponin I Troponin I Total Protein Albumin Globulin Albumin/Globulin Ratio Triglycerides 256 H Cholesterol 264 H LDL Cholesterol, Calc 146 VLDL Cholesterol, Calc 51 HDL Cholesterol 67 Cholesterol/HDL Ratio 4 Lipase Nasal Screen MRSA (PCR) Hepatitis C Ab Screen Pending 03/06/19 03/06/19 07:49 07:49 WBC RBC Hgb Hct MCV MCH MCHC RDW Std Deviation RDW Coeff of Migel Plt Count MPV Immature Gran % (Auto) Neut % (Auto) Lymph % (Auto) [place] % (Auto) Eos % (Auto) Baso % (Auto) Immature Gran # (Auto) Neut # (Auto) Lymph # (Auto) [place] # (Auto) Eos # (Auto) Baso # (Auto) PT INR APTT PTT Ratio Sodium 135 L Potassium 3.7 Chloride 103 Carbon Dioxide 22 Anion Gap 10.0 BUN 11 Creatinine 0.84 Est Cr Clr Drug Dosing 56.5 Est GFR ( Amer) 80.5 Est GFR (Non-Af Amer) 69.4 BUN/Creatinine Ratio 13.3 Glucose 159 H POC Glucose Estimat Average Glucose Hemoglobin A1c Calcium 8.7 Magnesium Total Bilirubin AST ALT Alkaline Phosphatase Total Creatine Kinase CK-MB (CK-2) CK/CKMB % Calc POC Troponin I Troponin I 29.900 H* Total Protein Albumin Globulin Albumin/Globulin Ratio Triglycerides Cholesterol LDL Cholesterol, Calc VLDL Cholesterol, Calc HDL Cholesterol Cholesterol/HDL Ratio Lipase Nasal Screen MRSA (PCR) Hepatitis C Ab Screen Medications Administered Home Medications Hydrochlorothiazide (Hctz *) 12.5 mg PO DAILY #15 07/31/07 [Rx] NONE #0 07/31/07 [History] Promethazine (Phenergan) 25 mg PO Q6HR PRN #15 07/31/07 [Rx] Active Medications Acetaminophen (Tylenol) 650 mg PO Q4H PRN PRN Reason: Mild Pain (scale 1-3) Stop: 04/04/19 19:31 Last Admin: 03/05/19 23:32 Dose: 650 mg Documented by: Aspirin (Ecotrin Ectab) 81 mg PO QAM [facility] Stop: 04/05/19 08:59 Atorvastatin Calcium (Lipitor) 40 mg PO QAM [facility] Stop: 04/05/19 08:59 Lisinopril (Zestril) 5 mg PO QAM [facility] Stop: 04/05/19 08:59 Metoprolol Tartrate (Lopressor) 50 mg PO BID [facility] Stop: 04/05/19 09:14 Miscellaneous (Icu Protocol For Hyperglycemia) 1 ea N/A PRN PRN; Protocol PRN Reason: Hyperglycemia Protocol Stop: 03/07/19 19:37 Nitroglycerin (Nitrostat) 0.4 mg SL Q5M PRN PRN Reason: Chest Pain Ondansetron HCl (Zofran) 4 mg IV Q6H PRN PRN Reason: Nausea And Vomiting Stop: 04/04/19 19:31 Last Admin: 03/05/19 22:47 Dose: 4 mg Documented by: Pantoprazole Sodium (Protonix) 40 mg PO BID [facility] Stop: 04/05/19 08:59 Prasugrel (Effient) 10 mg PO QAM [facility] Stop: 04/05/19 08:59 Coding Level of Care Code Critical Care 1st 30-74 mins Diagnoses Admitted to intensive care unit Z78.9 Time Spent (min) 36 Resident Activity Tracking Resident Involvement: Resident Care Provided Care Provided: Adult [facility] Medicine
[2019-03-06 08:28] LABS: BUN Creatinine Ratio 13.3 (10-20); Calcium 8.7 mg/dl (8.5-10.1); Creatinine Clr Calc Pharmacy 56.5 ml/min; Est GFR (African American) 80.5; Est GFR (Non-African American) 69.4; Potassium 3.7 mmol/L (3.5-5.1)
--- NOTE | 2019-03-06 09:01 | Cardiology Progress Note ---
Date of Service March 06, 2019 Assessment & Plan (1) ST elevation (STEMI) myocardial infarction: 2. Residual moderate proximal LAD, earlymid RCA disease 3. Right radial artery access site hematoma 4. Ischemic cardiomyopathy with anteroapical, apical lateral hypokinesis, EF 40% 5. Hypertension 6. Dyslipidemia Minimal residual chest discomfort. Troponin peaking. Hemodynamically and electrically stable. Post procedure labs stable Access site hematoma, neurovascularly intact Echo reviewedEF 40%, apical anterior/lateral hypokinesis, no significant valve disease, normal estimated filling pressures. Continue DAPT with aspirin, Prasugrel Titrate up metoprolol to 50 mg twice daily, continue lisinopril Continue current atorvastatin Continue PPI From a cardiac standpoint okay with transfer to telemetry today. Up walking halls as able. We will consider additional ischemic evaluation as an outpatient Subjective Minimal chest discomfort this morning. Feels like it might be GERD. One episode of vomiting overnight. Right wrist swollen, sore. No numbness or tingling. Telemetry reviewedno events Review of Systems Review of Systems: All systems reviewed & are unremarkable except as noted in HPI & below Physical Exam Physical Exam: General: Comfortable, no acute distress HEENT: Sclerae anicteric, mucous membranes moist Lungs: Clear to auscultation bilaterally, no rhonchi or wheezes Cardiac: Regular rate and rhythm, no murmurs. No JVD. Abdomen: Soft, nontender, nondistended, positive bowel sounds. Extremities: Warm, well perfused, no edema. Right radial artery access site with ecchymosis and hematoma extending to mid forearm. Distal pulse and sensation intact. Neuro: Nonfocal Psych: Alert orient x3, normal affect and mood Results & Data Vital Signs (Past 12 Hours) Vital Signs Temp Pulse Resp BP Pulse Ox 03/06/19 06:00 78 17 123/64 94 03/06/19 05:00 75 15 119/61 94 03/06/19 04:00 98.2 F 80 16 113/66 94 03/06/19 03:00 80 14 123/71 95 03/06/19 02:00 79 14 119/76 94 03/06/19 01:00 75 16 117/71 95 03/06/19 00:05 98.1 F 90 14 140/82 92 03/06/19 00:00 97.9 F 80 17 123/72 97 03/05/19 23:00 81 16 126/77 03/05/19 22:30 83 15 134/81 95 03/05/19 22:00 89 14 119/81 96 03/05/19 21:30 90 15 128/77 94 03/05/19 21:00 89 14 154/90 H 93 PG Care Time/CCT Total # of Minutes Spent Total Time Spent with Patient: Total time spent is greater than 50% in coordination of care (as documented) at patient's floor/unit and/or counseling patient: (1) ST elevation (STEMI) myocardial infarction Involved coronary artery: unspecified coronary artery Qualified Code(s): I21.3 - ST elevation (STEMI) myocardial infarction of unspecified site
[2019-03-06] MEDS: METOPROLOL TARTRATE 25 MG TAB PO SCH (09:32)
[2019-03-06] MEDS: PANTOprazole 40 MG TAB PO SCH ×2 (09:35→20:28)
[2019-03-06] MEDS: LISINOPRIL 5 MG TAB PO SCH (09:35)
[2019-03-06] MEDS: ASPIRIN 81 MG ECTAB PO SCH (09:35)
[2019-03-06] MEDS: ATORVASTATIN 40 MG TAB PO SCH (09:35)
[2019-03-06] MEDS: METOPROLOL TARTRATE 50 MG TAB PO SCH ×2 (09:35→20:02)
[2019-03-06] MEDS: PRASugrel TAB 10 MG TAB PO SCH (10:01)
[2019-03-07 06:48] LABS: BUN Creatinine Ratio 22.2 (10-20); Calcium 8.4 mg/dl (8.5-10.1); Est GFR (African American) 60.1; Est GFR (Non-African American) 51.8; Potassium 3.6 mmol/L (3.5-5.1)
[2019-03-07] MEDS ORDERED: ENOXAPARIN INJ 40 MG/0.4 ML SYR SQ SCH (09:00)
[2019-03-07] MEDS: PRASugrel TAB 10 MG TAB PO SCH (10:36)
[2019-03-07] MEDS: PANTOprazole 40 MG TAB PO SCH (10:37)
[2019-03-07] MEDS: ASPIRIN 81 MG ECTAB PO SCH (10:37)
[2019-03-07] MEDS: ATORVASTATIN 40 MG TAB PO SCH (10:37)
[2019-03-07] MEDS: METOPROLOL TARTRATE 50 MG TAB PO SCH (10:38)
[2019-03-07] MEDS: LISINOPRIL 5 MG TAB PO SCH (10:42)
--- NOTE | 2019-03-07 10:59 | Cardiology Progress Note ---
Date of Service March 07, 2019 Assessment & Plan (1) ST elevation (STEMI) myocardial infarction: --post PCI of LAD, first diagonal bifurcation with 2 KIESHA 2. Residual moderate proximal LAD, earlymid RCA disease 3. Right radial artery access site hematoma 4. Ischemic cardiomyopathy with anteroapical, apical lateral hypokinesis, EF 40% 5. Hypertension 6. Dyslipidemia Patient doing better today. No recurrent chest discomfort. Troponin peaking. Hypotensive and mildly tachycardic at times. BUN/Cr up from baseline, likely contrast induced. Access site hematoma improving, neurovascularly intact. Patient hoping to be discharged today. --Give metoprolol 50 mg this am --Hold lisinopril, consider attempting to resume as outpatient --Dual antiplatelet therapy for minimum of 1 year post event --Consider further ischemic evaluation as outpatient --Continue current atorvastatin --Up walking halls, possible discharge later today --Dr. Rios will reevaluate later today Subjective Patient reports feeling much better today. She has more energy and comments she seems like her usual self. She had some lightheadedness last evening but none so far today. No chest pain. No shortness of breath. Right wrist swelling improved. She has improved ROM, no numbness or tingling. No abnormal bleeding. She has been somewhat hypotensive and tachycardic but BP has improved. Review of Systems Review of Systems: All systems reviewed & are unremarkable except as noted in HPI & below Physical Exam Physical Exam: General: No acute distress, comfortable. HEENT: Sclerae anicteric. Neck: No JVD. Lungs: Clear to auscultation bilaterally without rales, rhonchi or wheezes. Cardiac: Regular rate and rhythm. S1-S2 normal. No appreciable murmur, gallop or rub. Extremities/vascular: --Well perfused. No peripheral edema. --Right radial access site with ecchymosis and hematoma to mid forearm. Small intact blister proximal to access site. Distal pulse and sensation intact. Neurologic: Nonfocal Psychiatric: Affect appropriate. Alert and oriented. Results & Data Vital Signs (Past 12 Hours) Vital Signs Temp Pulse Pulse Resp BP Pulse Ox 03/07/19 07:25 36.9 C 95 H 20 102/51 L 93 03/07/19 02:58 36.7 C 101 H 16 86/44 L 95 03/06/19 23:45 36.8 C 99 H 16 97/53 L 94 Laboratory Results Laboratory Results - last 24 hr 03/07/19 05:54 Sodium 138 Potassium 3.6 Chloride 106 Carbon Dioxide 25 Anion Gap 7.0 BUN 24 H D Creatinine 1.07 Est Cr Clr Drug Dosing 41.0 Est GFR ( Amer) 60.1 Est GFR (Non-Af Amer) 51.8 BUN/Creatinine Ratio 22.2 H Glucose 104 H Calcium 8.4 L ECG Additional Comments: Tele reviewed-- Sinus rhythm in the 80-90s PG Care Time/CCT Total # of Minutes Spent Total Time Spent with Patient: Total time spent is greater than 50% in coordination of care (as documented) at patient's floor/unit and/or counseling patient: (1) ST elevation (STEMI) myocardial infarction Involved coronary artery: unspecified coronary artery Qualified Code(s): I21.3 - ST elevation (STEMI) myocardial infarction of unspecified site
--- NOTE | 2019-03-09 12:36 | Discharge Summary ---
Date of Service March 09, 2019 Admission HPI Per Admitting Provider 73-year-old woman here with acute chest pain and ECG concerning for acute VA. Patient seen emergently in the ED after heart alert activated upon arrival. No significant past cardiac history. Questionable hypertension in the past but otherwise no significant ASCVD risk factors. Other medical issues include GERD but not on any medications. Chest pain began approximately 11 AM, 5+ hours before arrival while at rest. Describes substernal pain radiating to her left arm. Pain severe for approximately 20 minutes. Following that had stuttering chest pressure. Reports one similar episode 3 weeks ago with exertion and maybe one similar episode while walking 6 months ago. EKG on arrival here showed sinus tachycardia with subtle ST elevations in 1, aVL and V2, occasional PVC inferior ST depressions. Received ASA en route and 1 sublingual nitroglycerin in ED. Specialty Data Cardiology Cardiac cath/PCI 02/2019: 1. 100% acute occlusion of large first diagonal 2. Diffuse, moderate to severe, proximal to mid LAD disease 3. 40-50% earlymid RCA stenosis 4. Borderline intracardiac filling pressure 5. Successful PCI of LAD, first diagonal bifurcation with 2 drug-eluting stents (T formation, LAD2.5 x 28, diagonal2.5 x 15 Xience Jeanne). Echo 02/2019: borderline LVH, EF 45%, Trace AI, MR. Discharge Data Consultations 03/05/19 19:37 Consult Cardiac Rehabilitation Routine 03/05/19 19:38 Consult Case Management - Discharge Planning Routine 03/05/19 19:40 Consult Reception Interviewer Routine Procedures Performed Operation Date: 03/05/19 16:45 Actual Procedures p Cath, Left with Cors and Vent - Tommy Rios MD s Cineradiography w/Routine Exam - Tommy Rios MD s Aspiration/PCI w/KIESHA for Stemi - Tommy Rios MD s Drug Eluting Stent each ADDTL Vessel - Tommy Rios MD s IVUS Coronary Single Vessel - Tommy Rios MD Hospital Course (1) ST elevation (STEMI) myocardial infarction: --post PCI of LAD, first diagonal bifurcation with 2 KIESHA 2. Residual moderate proximal LAD, earlymid RCA disease 3. Right radial artery access site hematoma 4. Ischemic cardiomyopathy with anteroapical, apical lateral hypokinesis, EF 40% 5. Hypertension 6. Dyslipidemia Patient was taken emergently for cardiac catheterization was found to have an occluded first diagonal along with moderate to severe LAD disease. Underwent PCI with stent placement to diagonal, mid LAD. Post procedure echocardiogram showed mild LV dysfunction with an EF of proximal 45% and apical anterior/lateral wall motion abnormality. Troponin peaked at 29. Course complicated by right radial artery access site hematoma and mild hypotension on CHRISTI/beta-shital. On hospital day 3 he was feeling well with no recurrent chest pain and was discharged home. Labs stable, right upper extremity neurovascularly intact. In the setting of relative hypotensive lisinopril was held and will plan to resume as an outpatient. Follow-up with cardiology in 2 weeks and will arrange for cardiac rehab. Discharge Instructions Home Medications aspirin [Ecotrin Low Strength] 81 mg PO QAM 30 Days #30 tab 03/07/19 [Rx] atorvastatin 40 mg PO QAM 30 Days #30 tab 03/07/19 [Rx] metoprolol tartrate 25 mg PO BID 30 Days #60 tab 03/07/19 [Rx] nitroglycerin [Nitrostat] 0.4 mg SUBLINGUAL Q5M PRN #30 tab 03/07/19 [Rx] pantoprazole 40 mg PO DAILY #30 tab 03/07/19 [Rx] prasugrel [Effient] 10 mg PO QAM 30 Days #30 tab 03/07/19 [Rx]
== END 2019-03-07 15:31 | disposition home or self-care (01) | DRG 247 ==
LOC: ED 16:24 → CC 16:58 → 1E 19:38 → 2E 03-06 15:56